=== PATIENT | male | born 1980 | race African-American/Black ===

== ENCOUNTER 2016-08-10 13:58 | Emergency (ER) | payer SELFPAY ==
[~2016-08-10] VITALS: Ht 167.6 cm; Wt 79.1 kg
[2016-08-10 14:01] VITALS: TEMP 97.9
[2016-08-10 14:38] VITALS: BP 119/67
[2016-08-10 15:29] LABS: BASO % 0.6 % (0.0-2.0); EOS # 0.1 (0.0-0.7); EOS % 1.4 % (0-4.0); GRAN # 4.4 (1.4-6.5); GRAN % 62.8 % (42.2-75.2); HEMATOCRIT 44.6 % (42.0-52.0); HEMOGLOBIN 15.1 g/dl (13.5-18.0); LYMPH # 1.7 (1.2-3.4); LYMPH % 23.9 % (20.0-51.0); MEAN CELL VOLUME 85 fl (80.0-100.0); MEAN CORPUSCULAR HEMOGLOBIN 29 pg (27.0-31.0); MEAN CORPUSCULAR HGB CONC 34 g/dl (33.0-37.0); MEAN PLATELET VOLUME 10.9 fl (7.4-10.4); MONO # 0.8 (0.1-0.6); PLATELET COUNT 204 K/mm3 (130-400); RED BLOOD COUNT 5.27 M/mm3 (4.20-5.60); REDCELL DISTRIBUTION WIDTH-CV 14.6 % (11.5-14.5)
[2016-08-10 15:45] LABS: ALANINE AMINOTRANSFERASE 26 U/L (21-72); ALBUMIN 3.7 gm/dL (3.5-5.0); ALKALINE PHOSPHATASE 38 U/L (50-136); ANION GAP 8 mmol/L (7-16); BILIRUBIN,TOTAL 3.3 mg/dL (0.0-1.0); BLOOD UREA NITROGEN 9 mg/dL (9-20); CALCIUM 8.8 mg/dL (8.4-10.2); CARBON DIOXIDE 27 mmol/L (22-30); CHLORIDE 104 mmol/L (98-107); CREATININE, serum 0.92 mg/dL (0.66-1.25); GLUCOSE 73 mg/dL (74-106); POTASSIUM 3.8 mmol/L (3.4-5.0); SODIUM 139 mmol/L (137-145); TOTAL PROTEIN 6.6 gm/dL (6.4-8.2)
[2016-08-10 15:52] LABS: B-TYPE NATRIURETIC PEPTIDE 46 pg/mL (0-125); TROPONIN-I < 0.012 ng/mL (0.000-0.034)
[2016-08-10] MEDS ORDERED: FLEXERIL 1010 MG/TAB PO (16:27)
[2016-08-10 16:46] VITALS: PULSE 78
== END 2016-08-10 16:47 | disposition home or self-care (01) ==
LOC: COL.ER 13:58 → EDBD 14:18 → COL.ER 16:47
PROVIDERS: Emergency Medicine
DX: R07.9 Chest pain, unspecified (principal)
CPT/HCPCS: J1885

== ENCOUNTER 2017-08-08 07:44 | Emergency (ER) | payer SELFPAY ==
[~2017-08-08] VITALS: Ht 165.1 cm; Wt 75.0 kg
[~2017-08-08 07:44] MED LIST: FLEXERIL 1010 MG/TAB PO
[2017-08-08 07:47] VITALS: BP 136/61; TEMP 97.5
[2017-08-08] MEDS ORDERED: PROAIR HFA0.09 MG/AC IH ×2 (07:52→08:50)
[2017-08-08] MEDS ORDERED: PREDNISONE20 MG PO (08:49)
[2017-08-08 08:57] VITALS: PULSE 78
== END 2017-08-08 08:58 | disposition home or self-care (01) ==
LOC: COL.ER 07:44
DX: J45.901 Unspecified asthma with (acute) exacerbation (principal); F17.210 Nicotine dependence, cigarettes, uncomplicated

== ENCOUNTER 2017-12-25 20:13 | Emergency (ER) | payer SELFPAY ==
[~2017-12-25] VITALS: Ht 165.1 cm; Wt 75.0 kg
[~2017-12-25 20:13] MED LIST changes: +PREDNISONE20 MG PO; +PROAIR HFA0.09 MG/AC IH
[2017-12-25 20:43] VITALS: TEMP 99.5
[2017-12-25] MEDS ORDERED: PREDNISONE10 MG PO (22:29)
[2017-12-25] MEDS ORDERED: NEB MC (22:29)
[2017-12-25] MEDS ORDERED: ALBUTEROL SULFAT3 M3 IH (22:29)
[2017-12-25 22:49] VITALS: BP 123/71; PULSE 66
== END 2017-12-25 22:42 | disposition home or self-care (01) ==
LOC: COL.ER 20:13
DX: J45.901 Unspecified asthma with (acute) exacerbation (principal); F17.210 Nicotine dependence, cigarettes, uncomplicated
CPT/HCPCS: J7512

== ENCOUNTER 2018-08-03 13:35 | Emergency (ER) | payer SELFPAY ==
[~2018-08-03] VITALS: Ht 167.6 cm; Wt 75.0 kg
[~2018-08-03 13:35] MED LIST changes: +ALBUTEROL SULFAT3 M3 IH; +NEB MC; +PREDNISONE10 MG PO
[2018-08-03] MEDS ORDERED: PREDNISONE20 MG PO (15:11)
[2018-08-03] MEDS ORDERED: VENTOLIN0.09 MG IH (15:11)
[2018-08-03] MEDS ORDERED: ZITHROMAX Z PA250 MG PO (16:41)
[2018-08-03 17:52] VITALS: BP 141/81; PULSE 84; TEMP 98.3
== END 2018-08-03 17:53 | disposition home or self-care (01) ==
LOC: COL.ER 13:35
DX: J45.909 Unspecified asthma, uncomplicated (principal); J20.9 Acute bronchitis, unspecified; F17.210 Nicotine dependence, cigarettes, uncomplicated
CPT/HCPCS: J7512